=== PATIENT | male | born 1960 | race Caucasian/White ===

== ENCOUNTER 2016-11-18 13:02 | Outpatient (CLI) | payer BC ==
--- NOTE | 2016-11-21 12:25 | DIAGNOSTIC IMAGING REPORT ---
PROCEDURE: 2-D M-mode Doppler CLINICAL INDICATION: Atrial fibrillation TECHNIQUE: Standard technique employed COMPARISON: None available FINDINGS: The aortic valve exhibits mild sclerosis one to 2+ aortic insufficiency is detected. No stenosis seen. The mitral valve is normal configuration without MS or MR the tricuspid valve exhibits 1+ TR with RVSP 31 pulmonic valve is normal in configuration with 1+ PI demonstrated. Severe biatrial enlargement is present LV contractility is normal ejection fraction is 59% with normal contraction wall thickness is normal. Right ventricular chamber size function and pressure is normal with RVSP 31 mmHg. There are no abnormalities of the aortic order pericardium appreciated IMPRESSION: Left Ventricular ejection fraction 59% with normal contraction One to 2+ aortic insufficiency 1+ TR with RVSP 31 1+ PI Severe Biatrial enlargement
== END 2016-11-18 23:00 ==
LOC: US SRH 13:02
DX: I08.2 Rheumatic disorders of both aortic and tricuspid valves (principal)